=== PATIENT | male | born 1995 | race African-American/Black ===

== ENCOUNTER 2017-07-01 16:02 | Emergency (ER) | payer BC ==
[~2017-07-01] VITALS: Ht 175.3 cm; Wt 68.0 kg
[2017-07-01 16:23] VITALS: BP 116/65
[2017-07-01] MEDS ORDERED: POLY10DR EACHEYE (16:29)
--- NOTE | 2017-07-01 16:29 | PHYS DOC ---
Past Medical History Past Medical History: No Pertinent History Past Surgical History: No Surgical History Adult General Chief Complaint Chief Complaint: EYE PROBLEMS HPI HPI Patient is a 22 year old male presents to the emergency department with bilateral eye redness with discharge. He states his been present for 7 days. He does wear contact lenses but has not been wearing them for 3-4 days. He denies blurred vision, double vision, loss of vision. He denies globe pain. Review of Systems Review of Systems Constitutional: Denies fever or chills [] Eyes: Redness with discharge. Denies change in visual acuity pain. HENT: Denies nasal congestion or sore throat [] Respiratory: Denies cough or shortness of breath [] Cardiovascular: No additional information not addressed in HPI [] GI: Denies abdominal pain, nausea, vomiting, bloody stools or diarrhea [] : Denies dysuria or hematuria [] Musculoskeletal: Denies back pain or joint pain [] Integument: Denies rash or skin lesions [] Neurologic: Denies headache, focal weakness or sensory changes [] Endocrine: Denies polyuria or polydipsia [] Allergies Allergies Allergies Coded Allergies Type Severity Reaction Last Updated Verified No Known Drug Allergies 07/01/17 No Physical Exam Physical Exam Constitutional: Well developed, well nourished, no acute distress, non-toxic appearance. [] HENT: Normocephalic, atraumatic, bilateral external ears normal, oropharynx moist, no oral exudates, nose normal. [] Eyes: PERRLA, EOMI, sclera injected, conjunctiva beefy red, funduscopic exam is benign. Does have mild swelling to the right upper and lower lid. Purulent discharge medial canthus bilaterally. Neck: Normal range of motion, no tenderness, supple, without adenopathy no stridor. [] Cardiovascular:Heart rate regular rhythm, no murmur [] Lungs & Thorax: Bilateral breath sounds clear to auscultation []] Skin: Warm, dry, no erythema, no rash. [] Back: No tenderness, no CVA tenderness. [] Extremities: No tenderness, no cyanosis, no clubbing, ROM intact, no edema. [] Neurologic: Alert and oriented X 3, normal motor function, normal sensory function, no focal deficits noted. [] Psychologic: Affect normal, judgement normal, mood normal. [] EKG EKG [] Radiology/Procedures Radiology/Procedures [] Course & Med Decision Making Course & Med Decision Making Pertinent Labs and Imaging studies reviewed. (See chart for details) [] Dragon Disclaimer Dragon Disclaimer This electronic medical record was generated, in whole or in part, using a voice recognition dictation system. Departure Departure Impression: Primary Impression: Conjunctivitis Disposition: HOME, SELF-CARE Condition: STABLE Referrals: ABDULLAHI GARCIA (PCP) [facility], Patient Instructions: Bacterial Conjunctivitis Scripts Polymyxin B Sulf/Trimethoprim (POLYTRIM EYE DROPS) 10 Ml Drops 1 DROP EACHEYE Q4H while awake, #10 ML Prov: CANDACE THOMSON APRN 07/01/17 Problem Qualifiers Primary Impression: Conjunctivitis Conjunctivitis type: acute Acute conjunctivitis type: bacterial Laterality : bilateral Qualified Codes: H10.33 - Unspecified acute conjunctivitis, bilateral CANDACE THOMSON APRN Jul 01, 2017 16:29
== END 2017-07-01 16:47 | disposition home or self-care (01) ==
LOC: ER 16:02
DX: H10.33 Unspecified acute conjunctivitis, bilateral (principal)
CPT/HCPCS: 99283

== ENCOUNTER 2017-10-31 16:13 | Emergency (ER) | payer BC ==
[2017-10-31] MEDS: ONDANSETRON PF 4 MG/2 ML VIAL. IV (16:54)
[2017-10-31] MEDS: IV NORMAL SALINE 1000ML BAG 1,000 ML IV (16:55)
[2017-10-31 17:01] LABS: AGAP ISTAT 18 mmol/L (6-14); BUN ISTAT 8 mg/dL (8-26); CHLORIDE ISTAT 102 mmol/L (98-110); CREATININE ISTAT 0.9 mg/dL (0.5-1.4); GLUCOSE ISTAT 80 mg/dL (70-99); HEMATOCRIT ISTAT 45 % (37-52); HEMOGLOBIN ISTAT 15.3 g/dL (14-18); ION CA ISTAT 1.22 mmol/L (1.13-1.32); POTASSIUM ISTAT 3.8 mmol/L (3.5-5.0); SODIUM ISTAT 141 mmol/L (135-145); TOT CO2 ISTAT 26 mmol/L (23-32)
[2017-10-31 17:32] LABS: BILIRUBIN,URINE NEGATIVE (NEG); CLARITY,URINE CLOUDY; COLOR,URINE YELLOW; GLUCOSE,URINE NEGATIVE (NEG); NITRITE,URINE NEGATIVE (NEG); PROTEIN,URINE NEGATIVE (NEG-TRACE); UROBILINOGEN,URINE 0.2 mg/dL (0.2 mg/dL)
[2017-10-31 17:38] LABS: AMORPHOUS SEDIMENT,UR PRESENT /HPF; BACTERIA,URINE 0 /HPF (0-FEW); RBC,URINE 0 /HPF (0-2); WBC,URINE 0 /HPF (0-4)
== END 2017-10-31 17:48 | disposition home or self-care (01) ==
LOC: ER 16:13
DX: R11.2 Nausea with vomiting, unspecified (principal); R19.7 Diarrhea, unspecified
CPT/HCPCS: 36415; 80047; 81001; 85014; 85018; 96361; 96374; 99284-25; J2405; J7030